=== PATIENT | male | born 1985 | race African-American/Black ===

== ENCOUNTER 2018-07-28 02:31 | Emergency (ER) | payer OTHER ==
[~2018-07-28] VITALS: Ht 182.9 cm; Wt 95.3 kg
[~2018-07-28 02:31] MED LIST: ACETAMINOPHEN-1 EAC1 ORAL; AMOXICILLIN500 MG ORAL; CORTISPORIN EAR10 ML RIGHT EAR; CYCLOBENZAPRINE10 MG ORAL; FLONASE16 GM NASAL; IBUPROFEN600 MG ORAL; NKM; NORCO 5-325 TA1 EACH ORAL; OMEPRAZOLE40 M1 ORAL; PERCOCET 5-3251 EACH ORAL; TYLENOL EXTRA500 MG ORAL; ZOFRAN ODT4 MG ORAL
[2018-07-28 02:49] VITALS: BP 128/81
[2018-07-28] MEDS ORDERED: Lidocaine 2% Visc 15ml soln ORAL ONE (03:00)
--- NOTE | 2018-07-28 03:06 | Emergency Room Report ---
History of Present Illness General Chief Complaint: Toothache Source: Patient Present Illness HPI Patient presents with a toothache in his right upper second molar. He has a broken tooth. It was supposed to get worked on last week however his job made him miss the appointment. He denies any fevers. He's getting work on other teeth. The last time he was taking amoxicillin was a month ago for a different tooth problem. He took ibuprofen, Tylenol codeine and aspirin tonight. He rates the pain at 10/10 aching, constant and some radiation to the cheek area. No numbness. It is worse with chewing. No facial swelling. No headache. No NV. Prior problems with ulcer. Allergies: Coded Allergies: No Known Allergies (Unverified , 06/13/14) Patient History Past Medical History: see triage record Social History: Reports: smoking Social History Narrative maintenance Reviewed Nursing Documentation: PMH: Agreed; PSxH: Agreed Review of Systems Constitutional: Reports: see HPI ENT: Reports: see HPI Gastrointestinal: Reports: see HPI Skin: Denies: rash Neurological: Reports: see HPI Physical Exam Vital Signs Date Time Temp Pulse Resp B/P (MAP) Pulse Ox O2 Delivery O2 Flow Rate FiO2 07/28/18 02:34 59 18 128/81 97 Room Air 07/28/18 02:49 98.5 98.5 Sp02 EP Interpretation: reviewed, normal General Appearance: well appearing, no apparent distress, GCS 15 Head: normocephalic, atraumatic Eyes: bilateral eye normal inspection ENT: hearing grossly normal, normal pharynx, normal voice, other - broken 2nd molar with gum erythema, no mass or fluctuance, but some swelling Neck: full range of motion, supple Respiratory: no respiratory distress, speaking full sentences Cardiovascular #1: regular rate, rhythm Cardiovascular #2: 2+ radial (L) Gastrointestinal: normal inspection Musculoskeletal: gait/station normal, normal range of motion Neurologic: alert, normal gait, grossly normal Psychiatric: mood/affect normal Skin: no rash Medical Decision Making Diagnostic Impression: Primary Impression: Toothache ER Course Patient with tooth pain. DDx: dental abscess, painful caries amongst others. Antibiotics and analgesia indicated. Will also apply topical anesthetic. Improved with treatment. Discussed need to f/u with dentist. Patient stable for outpatient observation and treatment. Last Vital Signs Date Time Temp Pulse Resp B/P (MAP) Pulse Ox O2 Delivery O2 Flow Rate FiO2 07/28/18 03:30 98.5 78 16 120/74 97 Room Air 98.5 Status: improved Disposition: HOME, SELF-CARE Condition: Improved Scripts Tramadol Hcl* (ULTRAM*) 50 Mg Tablet 50 MG ORAL Q6H PRN for For Pain, #8 TAB 0 Refills Prov: Tunde Llanes M.D. 07/28/18 Amoxicillin* (AMOXIL*) 500 Mg Capsule 500 MG ORAL THREE TIMES A DAY, #21 CAP Prov: Tunde Llanes M.D. 07/28/18 Lidocaine HCl (Lidocaine HCl Viscous) 100 Ml Solution 1 APPLIC MM Q6HR, #30 ML Prov: Tunde Llanes M.D. 07/28/18 Referrals: [facility],REFERRING (PCP) Tunde Llanes M.D. Jul 28, 2018 03:06
[2018-07-28] MEDS ORDERED: TRAMADOL HCL50 MG ORAL (03:09)
[2018-07-28] MEDS ORDERED: LIDOCAINE20 MG/1 M1 MM (03:09)
[2018-07-28] MEDS ORDERED: AMOXICILLIN500 MG ORAL (03:09)
[2018-07-28 03:30] VITALS: BP 120/74
== END 2018-07-28 03:30 | disposition home or self-care (01) ==
LOC: EMR 02:49
DX: K08.89 Other specified disorders of teeth and supporting structures (principal); Z72.0 Tobacco use
CPT/HCPCS: 99283

== ENCOUNTER 2019-01-26 05:05 | Emergency (ER) | payer OTHER ==
[~2019-01-26] VITALS: Ht 182.9 cm; Wt 99.8 kg
[~2019-01-26 05:05] MED LIST changes: +LIDOCAINE20 MG/1 M1 MM; +TRAMADOL HCL50 MG ORAL
[2019-01-26 05:16] VITALS: BP 141/85
--- NOTE | 2019-01-26 05:16 | NUR ---
ED Nurse Note: CHRONIC LOWER BACK PAIN AT 10/10 MEDS NOT WORKING. OLD INJURY 2015
--- NOTE | 2019-01-26 05:17 | NUR ---
ED Nurse Note: PER PT IBUPROFEN AND TYLENOL HAVE NOT BEEN HELPFUL
[2019-01-26] MEDS ORDERED: HYDROmorphone 1mg/ml Carpuject IM ONE (05:30)
--- NOTE | 2019-01-26 05:30 | Emergency Room Report ---
History of Present Illness General Chief Complaint: Back Pain-No Injury Source: Patient Present Illness HPI Is a 33-year-old male with a history of back pains status post Workmen's Comp. injury. He presents with chief complaint of lower back pain. He sneezed and he had a severe pain to his lower back. Current both side but left worse than right. He has some pain waiting to his hip. No new trauma. No fever chills. Taking Tylenol 3 and Motrin and not helping. Muscle relaxers not helping. Denies any incontinence of bowel or urine. Denies any trauma denies any fever. No numbness. Allergies: Coded Allergies: No Known Allergies (Unverified , 01/26/19) Patient History Past Medical History: see triage record, old chart reviewed Past Surgical History: other Pertinent Family History: none Social History: Denies: smoking Immunizations: other Reviewed Nursing Documentation: PMH: Agreed; PSxH: Agreed Nursing Documentation-PMH Past Medical History: No Stated History Review of Systems Eye: Denies: eye pain, blurred vision ENT: Denies: ear pain, nose congestion, throat swelling Respiratory: Denies: cough, shortness of breath Cardiovascular: Denies: chest pain, palpitations Gastrointestinal: Denies: abdominal pain, diarrhea, nausea, vomiting Musculoskeletal: Reports: back pain; Denies: joint pain Skin: Denies: rash Neurological: Denies: headache, numbness Endocrine: Denies: increased thirst, increased urine Hematologic/Lymphatic: Denies: easy bruising All Other Systems: negative except mentioned in HPI Physical Exam Vital Signs Date Time Temp Pulse Resp B/P (MAP) Pulse Ox O2 Delivery O2 Flow Rate FiO2 01/26/19 05:08 98.2 83 18 141/85 98 Room Air vitals normal Sp02 EP Interpretation: reviewed, normal General Appearance: well appearing, no apparent distress, alert Head: normocephalic, atraumatic Eyes: bilateral eye PERRL, bilateral eye EOMI ENT: hearing grossly normal, normal pharynx Neck: full range of motion, supple, no meningismus Respiratory: chest non-tender, lungs clear, normal breath sounds Cardiovascular #1: regular rate, rhythm, no murmur Gastrointestinal: normal bowel sounds, non tender, no mass, no organomegaly, no bruit, non-distended Musculoskeletal: back normal - Tenderness to the mid lumbar area. No anesthesia , gait/station normal, normal range of motion Psychiatric: mood/affect normal Skin: warm/dry Medical Decision Making Diagnostic Impression: Primary Impression: Back pain Qualified Codes: M54.5 - Low back pain ER Course Patient with lower back pain. Differential include stenosis, herniated disc, muscle spasm to name a few. No red flags indicate cauda equina syndrome, spinal epidural abscess or neoplastic process. We'll discharge home. Last Vital Signs Date Time Temp Pulse Resp B/P (MAP) Pulse Ox O2 Delivery O2 Flow Rate FiO2 01/26/19 05:16 98.2 83 18 141/85 98 Room Air Status: improved Disposition: HOME, SELF-CARE Condition: Stable Scripts Hydrocodone/Acetaminophen 5-325* (HYDROCODONE/ACETAMINOPHEN 5-325*) 1 Each Tablet 1 TAB ORAL Q6H PRN for For Pain, #20 TAB 0 Refills Prov: Hussain Dinh MD 01/26/19 Patient Instructions: Back Pain, Adult Additional Instructions: Follow-up with your doctor in 7 days. You may benefit from an MRI. Return if worse. Hussain Dinh MD Jan 26, 2019 05:30
[2019-01-26] MEDS ORDERED: HYDROCODON-ACE1 EA15 ORAL (05:33)
--- NOTE | 2019-01-26 05:41 | NUR ---
ER DISCHARGE NOTE: Patient is cleared to be discharged per ERMD, pt is aox4, on room air, with stable vital signs. pt was given dc and prescription instructions, pt was able to verbalize understanding, pt id band removed. pt is able to ambulate with steady gait. pt took all belongings.
== END 2019-01-26 05:45 | disposition home or self-care (01) ==
LOC: EMR 05:44
DX: M54.5 Low back pain (principal)
CPT/HCPCS: 96372; 99283; J1170

== ENCOUNTER 2019-11-17 14:15 | Emergency (ER) | payer OTHER ==
[~2019-11-17] VITALS: Ht 182.9 cm; Wt 99.8 kg
[~2019-11-17 14:15] MED LIST changes: +HYDROCODON-ACE1 EA15 ORAL; +VOLTAREN100 G1 TP
[2019-11-17 14:47] VITALS: BP 152/90
--- NOTE | 2019-11-17 15:33 | Emergency Room Report ---
History of Present Illness General Chief Complaint: Upper Respiratory Illness Source: Patient Present Illness HPI 34 YO male presents to the emergency department with multiple complaints for a total of 3. 1) chronic cough x 1 month-he denies fevers or chills at this time. Patient reports he was a previous smoker. Patient denies history of GERD. He denies history of asthma. He denies sputum production. He denies chest pain, palpitations or shortness of breath. He denies dyspnea on exertion. He denies hemoptysis. 2) Perineal discomfort when coughing after having 1 episode of 10/10 in severity acute pain with swelling after ejaculation last week. He reports that he no longer feels any swelling in that area however with palpation he does have some mild tenderness. Patient denies warmth. Patient states he is unable to determine if there is erythema as difficult area to examine on his own. He denies dysuria, hematuria, urinary frequency or pyuria. He denies penile d/c. He denies rectal pain or blood in the stools or passing the stool. 3) chronic eye disturbance x 3 weeks: Patient reports having persistent small viejas in the right aspect of the visual field of his right eye after being outside in bright light. Patient denies eye pain or photophobia. Patient denies loss of vision he denies movement of the visual disturbance. He denies discharge. He denies external eye erythema. Patient reports he wears glasses and was evaluated for this symptom by his airport representative who after exam did not feel there is anything necessary to do. Allergies: Coded Allergies: No Known Allergies (Unverified , 11/09/19) Patient History Past Medical History: see triage record Past Surgical History: none Pertinent Family History: none Reviewed Nursing Documentation: PMH: Agreed; PSxH: Agreed Nursing Documentation-PM Past Medical History: No History, Except For Hx Gastrointestinal Problems: Yes - Ulcer Review of Systems All Other Systems: negative except mentioned in HPI Physical Exam Vital Signs Date Time Temp Pulse Resp B/P (MAP) Pulse Ox O2 Delivery O2 Flow Rate FiO2 11/17/19 14:29 98.2 92 20 154/90 (111) 100 Room Air Sp02 EP Interpretation: reviewed, normal General Appearance: no apparent distress, alert, GCS 15, non-toxic Head: normocephalic, atraumatic Eyes: bilateral eye normal inspection, bilateral eye PERRL, bilateral eye EOMI , bilateral eye other - Normal visual field testing. No obvious photophobia. ENT: hearing grossly normal, normal voice Neck: full range of motion Respiratory: chest non-tender, lungs clear, normal breath sounds, no rhonchi, no respiratory distress, no accessory muscle use, no wheezing, speaking full sentences Cardiovascular #1: regular rate, rhythm, no edema, normal capillary refill Gastrointestinal: non tender, soft Rectal: deferred Genitourinary: normal inspection, no CVA tenderness, other - There is no erythema, swelling or warmth in the perineal area. With deep palpation there is a palpable bulge when the patient coughs. , deferred - Pt. declines prostate exam Musculoskeletal: back normal, normal range of motion, gait/station normal, non- tender Neurologic: alert, motor strength/tone normal, oriented x3, sensory intact, responsive, speech normal Psychiatric: judgement/insight normal Skin: no rash, normal color, normal inspection Lymphatic: no adenopathy Medical Decision Making PA Attestation Dr. Cuadra is my supervising Physician whom patient management has been discussed with. Diagnostic Impression: Primary Impression: Cough present for greater than 3 weeks Additional Impressions: Simple perineal hernia Visual disturbance ER Course 34 YO male presents to the emergency department with multiple complaints for a total of 3. 1) chronic cough x 1 month-he denies fevers or chills at this time. Patient reports he was a previous smoker. Patient denies history of GERD. He denies history of asthma. He denies sputum production. He denies chest pain, palpitations or shortness of breath. He denies dyspnea on exertion. He denies hemoptysis. 2) Perineal discomfort when coughing after having 1 episode of 10/10 in severity acute pain with swelling after ejaculation last week. He reports that he no longer feels any swelling in that area however with palpation he does have some mild tenderness. Patient denies warmth. Patient states he is unable to determine if there is erythema as difficult area to examine on his own. He denies dysuria, hematuria, urinary frequency or pyuria. He denies penile d/c. He denies rectal pain or blood in the stools or passing the stool. 3) chronic eye disturbance x 3 weeks: Patient reports having persistent small viejas in the right aspect of the visual field of his right eye after being outside in bright light. Patient denies eye pain or photophobia. Patient denies loss of vision he denies movement of the visual disturbance. He denies discharge. He denies external eye erythema. Patient reports he wears glasses and was evaluated for this symptom by his airport representative who after exam did not feel there is anything necessary to do. Ddx considered but are not limited to URI, pneumonia, PE, strep pharyngitis, meningitis, hernia, abscess, prostatitis retinal detachment, retinal artery or vein occlusion, acute intraocular pathology just to name a few Vital signs: Pt. is afebrile, the remaining VS are WNL H&PE are most consistent with Chronic cough, no symptoms of URI- no meningeal signs, oropharynx is not involved, no evidence of bacterial infection at this time. Physical exam is most consistent with a simple perennial hernia that is notable only when patient is coughing. No obvious abscess or signs of infection. Patient did defer prostate exam however patient is not exhibiting any other symptoms that would suggest prostatitis. Discussed with patient that given the chronicity of his visual disturbance and already being evaluated by airport representative I do not feel that he is experiencing an emergent condition at this time and that his condition would be most properly diagnosed and treated for by an foundry process engineer. ORDERS: none required at this time, the diagnosis is clinical ED INTERVENTIONS: None required at this time. --PT. EDUCATION: Discussed antibiotic resistance with inappropriate prescribing of antibiotics for viral illnesses. Discussed signs and symptoms to indicate viral illness versus bacterial illness. DISCHARGE: At this time pt. is stable for d/c to home. Will provide printed patient care instructions, and any necessary prescriptions. Care plan and follow up instructions have been discussed with the patient prior to discharge. Last Vital Signs Date Time Temp Pulse Resp B/P (MAP) Pulse Ox O2 Delivery O2 Flow Rate FiO2 11/17/19 14:47 92 20 Room Air 11/17/19 14:47 98.2 152/90 100 Disposition: HOME, SELF-CARE Condition: Stable Scripts Benzonatate* (BENZONATATE*) 200 Mg Capsule 200 MG ORAL THREE TIMES A DAY for 7 Days, #21 PERLE Prov: Zayra Cunningham 11/17/19 Loratadine/Pseudoephedrine (ALLERGY-CONGEST RLF-D 24HR TAB) 1 Each Tab.er.24h 1 EACH PO DAILY for 10 Days, #10 TAB Prov: Zayra Cunningham 11/17/19 Famotidine* (Pepcid 20mg tablet*) 20 Mg Tablet 20 MG ORAL TWICE A DAY for 10 Days, #20 TAB 0 Refills Prov: Zayra Cunningham 11/17/19 Albuterol Sulfate* (ALBUTEROL SULFATE MDI*) 8.5 Gm Hfa.aer.ad 2 PUFF INH Q3H, #1 INH 0 Refills Prov: Zayra Cunningham 11/17/19 Referrals: NON PHYSICIAN (PCP) Patient Instructions: Cough, Adult, [id number], Hernia, Adult, [id number] Additional Instructions: Take medications as directed. Follow up with a Primary Care Provider in 3-5 days, even if your symptoms have resolved. GI EVALUATION of your PERINEAL Symptoms/ Hernia within 3-5 days. Opthamology Eval for Persistent Visual disturbance ( within 72 hours) Return sooner to ED if new symptoms occur, or current symptoms become worse. - Please note that this Emergency Department Report was dictated using [employer] machine feeder technology software, occasionally this can lead to erroneous entry secondary to interpretation by the dictation equipment. Zayra Cunningham Nov 17, 2019 15:33
[2019-11-17] MEDS ORDERED: ALLERGY-CONGES1 EAC3 PO (15:35)
[2019-11-17] MEDS ORDERED: BENZONATATE200 MG ORAL (15:35)
[2019-11-17] MEDS ORDERED: FAMOTIDINE20 MG ORAL (15:35)
[2019-11-17] MEDS ORDERED: ALBUTEROL SULF8.5 GM INH (15:35)
[2019-11-17 15:49] VITALS: BP 156/92
== END 2019-11-17 15:50 | disposition home or self-care (01) ==
LOC: EMR 14:40
DX: R05 Cough (principal); K45.8 Other specified abdominal hernia without obstruction or gangrene; H53.9 Unspecified visual disturbance
CPT/HCPCS: 99282